=== PATIENT | male | born 1965 | race Caucasian/White ===

== ENCOUNTER 2017-06-25 04:40 | Inpatient (IN) | payer MEDICARE ==
[2017-06-25] MEDS ORDERED: METAL LOCK LOOP XX (05:39)
[2017-06-25] MEDS: OLANZapine ORAL DISINTEGRATING TAB 5MG PO (05:47)
[2017-06-25] MEDS: IBUPROFEN 800 MG TAB PO (06:16)
[2017-06-25] MEDS ORDERED: MAALOX 30 ML SUSP *UDC PO (07:45)
[2017-06-25] MEDS ORDERED: MOM 30ML SUSPENSION UDC PO (07:45)
[2017-06-25] MEDS: NICOTINE 21MG/24HR 1 EA TRANSDERMAL TD ×2 (09:00→10:42)
[2017-06-25] MEDS: ACETAMINOPHEN TAB 650MG DOSE (2X325MG) PO (10:41)
[2017-06-25] MEDS: HALOPERIDOL 5 MG TAB PO ×3 (11:09→21:36)
[2017-06-25] MEDS: BENZTROPINE 2 MG TAB PO (11:09)
[2017-06-25] MEDS: LORazepam 2 MG TAB PO (11:09)
[2017-06-26] MEDS: ACETAMINOPHEN TAB 650MG DOSE (2X325MG) PO ×2 (05:22→13:14)
[2017-06-26] MEDS: BENZTROPINE 2 MG TAB PO (08:20)
[2017-06-26] MEDS: HALOPERIDOL 5 MG TAB PO ×3 (08:20→20:10)
[2017-06-26] MEDS: NICOTINE 21MG/24HR 1 EA TRANSDERMAL TD (08:22)
[2017-06-26] MEDS: IBUPROFEN 400 MG TAB PO ×2 (09:56→15:26)
[2017-06-26] MEDS: HALOPERIDOL DECANOATE 100 MG/ML VIAL (J1631) IM (20:10)
[2017-06-26] MEDS: traZODone 50 MG TAB PO (21:40)
[2017-06-27] MEDS: IBUPROFEN 400 MG TAB PO ×2 (06:21→20:24)
[2017-06-27] MEDS: NICOTINE 21MG/24HR 1 EA TRANSDERMAL TD (08:31)
[2017-06-27] MEDS: HALOPERIDOL 5 MG TAB PO ×4 (08:31→20:24)
[2017-06-27] MEDS: BENZTROPINE 2 MG TAB PO (08:31)
[2017-06-27] MEDS: traZODone 50 MG TAB PO (21:36)
[2017-06-28] MEDS: IBUPROFEN 400 MG TAB PO (06:30)
[2017-06-28] MEDS: HALOPERIDOL 5 MG TAB PO (08:14)
[2017-06-28] MEDS: BENZTROPINE 2 MG TAB PO (08:14)
[2017-06-28] MEDS: NICOTINE 21MG/24HR 1 EA TRANSDERMAL TD (08:16)
== END 2017-06-28 12:40 | disposition home or self-care (01) | DRG 885 ==
LOC: M ED 04:40 → M ED INP 07:40 → M PSY 08:52
DX: F20.0 Paranoid schizophrenia (principal); F17.210 Nicotine dependence, cigarettes, uncomplicated; Z79.899 Other long term (current) drug therapy; Z88.5 Allergy status to narcotic agent